=== PATIENT | female | born 1965 | race Hispanic/Latino ===

== ENCOUNTER 2017-11-10 06:15 | Day surgery (SDC) | payer BC ==
[2017-11-07 10:45] VITALS: BMI 32.8
[2017-11-10 07:15] LABS: HEMOGLOBIN 14.6 g/dL (12.0-16.0); MEAN CELL VOLUME 89.7 fl (81.0-99.0); MEAN CORPUSCULAR HEMOGLOBIN 30.2 pg (27.0-31.0); MEAN CORPUSCULAR HGB CONC 33.7 g/dL (33.0-37.0); RBC 4.82 Mil/uL (3.80-5.20); RED CELL DISTRIBUTION WIDTH 13.5 % (11.5-14.5); WHITE BLOOD COUNT 6.1 K/uL (4.8-10.8)
[2017-11-10] MEDS ORDERED: ePHEDrine 50 mg/ml Inj ONE (09:22)
[2017-11-10] MEDS ORDERED: Rocuronium 10 mg/ml (5 ml) ONE (09:22)
[2017-11-10] MEDS ORDERED: Propofol 10 mg/ml Inj (20 ML) ONE (09:22)
[2017-11-10] MEDS ORDERED: Bupivacaine HCl 0.5% PF (10 ml) Inj ONE (10:24)
[2017-11-10] MEDS ORDERED: Succinylcholine 200 mg/10 ml Inj IV ONE (11:19)
[2017-11-10] MEDS ORDERED: Midazolam 2 MG/2 ML VIAL ONE (11:20)
[2017-11-10] MEDS ORDERED: Dexamethasone 4 mg/1 ml ONE (11:24)
[2017-11-10] MEDS ORDERED: Lactated Ringer's 1,000 ML IV ONE ×2 (11:39→12:20)
[2017-11-10] MEDS ORDERED: HYDROmorphone 0.5 mg/0.5 ml ISec IVP PRN (12:56)
[2017-11-10] MEDS ORDERED: Dexamethasone 4 mg/1 ml IVP PRN (13:02)
[2017-11-10] MEDS ORDERED: Midazolam 2 MG/2 ML VIAL IVP PRN (13:02)
[2017-11-10 14:20] VITALS: RESP 18
[2017-11-10] MEDS ORDERED: Metoprolol Succinate 50 mg XL Tab PO ONE (17:10)
[2017-11-10] MEDS ORDERED: Metoprolol Succinate 50 mg XL Tab PO SCH (17:15)
[2017-11-10 17:40] VITALS: BP 149/91; PULSE 143; TEMP 97.7; O2SAT 95
--- NOTE | 2017-11-11 13:53 | OP ---
PROCEDURE DATE: 11/10/17 SURGEON: Alberto Chapman MD ANALYTICS DIRECTOR: Justice Limon MD ANESTHESIOLOGIST: Dariana Marroquin MD ANESTHETIC: General PREOPERATIVE DIAGNOSES: 1. Incapacitating pelvic pain. 2. Incapacitating abdominal pain. 3. Abnormal uterine bleeding. 4. History of pelvic endometriosis. 5. History of previous failed medical surgical therapy. 6. Gastrointestinal and genitourinary symptoms. POSTOPERATIVE DIAGNOSES: 1. Incapacitating pelvic pain. 2. Incapacitating abdominal pain. 3. Abnormal uterine bleeding. 4. History of pelvic endometriosis. 5. History of previous failed medical surgical therapy. 6. History of severe endometriosis and pelvic adhesions. 7. Gastrointestinal and genitourinary symptoms. 8. pelvic endometriosis. OPERATION PERFORMED: 1. Examination under anesthesia. 2. operative laparoscopy 3. Multiple peritoneal biopsies and excision of endometriosis 4. Left ureterolysis. 5. Enterolysis. 6. Treatment of endometriosis COMPLICATIONS: None. SAMPLES: sent to pathology DRAINS: ESTIMATED BLOOD LOSS: Minimal. FINDINGS: Genitalia normal, external genitalia, cervix normal without lesions or polyps. Laparoscopy upper was normal, gallbladder was normal, liver edges appeared to be normal. Ascending colon and transverse were normal. The appendix appeared to be abnormal with both fibrosis and thickening. There was evidence of some fibrosis and endometriosis . Fallopian tubes appeared to have some inflammatory changes of adhesions, but overall appeared to be normal. Both ovaries appeared to be normal . CONSENT: The patient had been thoroughly evaluated and counseled regarding pros and cons of the procedure, the reasonable alternative, and the possible complications. She understood and accepted the risks involved. Appropriate literature was provided to the patient. The patient was in understanding that given her history and presurgical exam, she knows that she was a high risk and average patient. She accepted all the risks involved and all the questions had been answered to her satisfaction. DESCRIPTION OF PROCEDURE: Initiation of the case: After adequate anesthesia was obtained, the patient was placed in the dorsal lithotomy position with extreme care of placement of the patient without hyperextension or hyperflexing the hips. At this point, the patient was prepped and draped, the surgeon was gowned and gloved. A time- out was taken according to the hospital procedure and the procedure was started. . At this point, we proceeded with placement of the trocars . The surgeons were regowned and regloved, and an open laparoscopy was performed by making an incision below the umbilicus, and the fascia was incised, and the peritoneum was entered in the blunt fashion. The cannula was inserted and the abdomen was insufflated, and under direct visualization 2 additional ports were inserted, left upper quadrant, left mid quadrant and right upper quadrant. . The pelvis had the findings described above, which included significant adhesions, At this point, we proceeded with the left ureterolysis. The left ureter appeared to dilated and it was clearly identified utilizing fluorescent technology. An incision was made on the peritoneum at the top of the pelvic brim, and incision was then carried down all the way opening the peritoneum and all the way down from the pelvic brim all the way down to the ovarian fossa extending the incision below the ovary. It was a progressive dissection where the ureter was progressively lateralized and the peritoneum medialized, thus freeing the ureter all the way down to the crossing of the uterine vessels. After this was done and the ureter was freed and lateralized and a large area of peritoneum, which had been opened up was excised and sent to pathology. At this point, it was checked for hemostasis and appeared to be excellent. All the endometriosis had been excised. At this point, we performed the ablation of inflamed peritoneum, utilizing the J_plasma device. There were inflammatory areas in the posterior aspect of the uterus, which were not endometriotic, but they were purely inflammatory and these were not excisable, as they were not endometriotic. Therefore, we proceeded with ablation of such area utilizing the J plasma. Once this was done, it was checked for hemostasis and appeared to be excellent. After this was done, it was checked for hemostasis and appeared to be excellent. The pelvis was irrigated. The abdomen desufflated. The instruments were removed. The incisions were closed in layers with 0 PDS for the fascia and 4-0 Monocryl for the skin. The patient was awakened up and taken to recovery room in excellent condition. Alberto Chapman MD [facility]ENTERJamey
--- NOTE | 2017-11-14 21:33 | CARD ---
APPROVED REPORT EKG Measurement Heart [id number] VA 104P [id number] <Conclusion> Sinus tachycardia with short VA Minimal voltage criteria for LVH, may be normal variant Anterolateral infarct, age undetermined Abnormal ECG
== END 2017-11-10 18:30 | disposition still patient (30) ==
LOC: H.OPSURG 06:15
PROVIDERS: ATTEND Obstetrics & Gynecology Reproductive Endocrinology
DX: N80.3 Endometriosis of pelvic peritoneum (principal); E03.9 Hypothyroidism, unspecified; I10 Essential (primary) hypertension; K21.9 Gastro-esophageal reflux disease without esophagitis; F32.9 Major depressive disorder, single episode, unspecified; F41.9 Anxiety disorder, unspecified; R10.2 Pelvic and perineal pain; N93.9 Abnormal uterine and vaginal bleeding, unspecified; K66.0 Peritoneal adhesions (postprocedural) (postinfection); N80.0 Endometriosis of uterus; N73.6 Female pelvic peritoneal adhesions (postinfective); N13.4 Hydroureter; N80.1 Endometriosis of ovary
CPT/HCPCS: 36415; 58558; 58662; 85027; 86850; 86900; 88305; 93005; C1729; J0330; J1100; J1170; J2001; J2250; J2704; J2765; J3010; J7030; J7040; J7120

== ENCOUNTER 2017-11-10 18:16 | Emergency (ER) | payer BC ==
[2017-11-10 18:17] VITALS: BMI 32.8
[2017-11-10 18:57] VITALS: TEMP 98.1
[2017-11-10] MEDS ORDERED: Sodium Chloride 0.9% 1,000 ML IV STA (19:03)
--- NOTE | 2017-11-10 19:04 | ED PDOC ---
HPI: Psych/Substance Abuse Time Seen by Provider: 11/10/17 18:44 Chief Complaint (Nursing): Palpitations Chief Complaint (Provider): Palpitations History Per: Patient History/Exam Limitations: no limitations Onset/Duration Of Symptoms: Hrs (x2) Current Symptoms Are (Timing): Still Present Additional Complaint(s): 52 year old female with medical history of anxiety, referred to the emergency department from day-stay for an evaluation of panic attacks and palpitations ongoing for 2 hours prior to arrival. Patient was being prepped for laparoscopic surgery and given "something that was like Ativan" prior which caused her to feel anxious. She states this is the worse episode that she has ever experienced. Patient denies any chest pain or shortness of breath. Past Medical History Reviewed: Historical Data, Nursing Documentation, Vital Signs Vital Signs: Last Vital Signs Temp 98.1 F 11/10/17 18:52 Pulse 129 H 11/10/17 18:52 Resp 21 11/10/17 18:52 BP Pulse Ox 96 11/10/17 18:52 - Medical History PMH: Anxiety, Gastritis (heartburn), Hypothyroidism Denies: Chronic Kidney Disease - Surgical History Surgical History: Cholecystectomy - Family History Family History: States: Unknown Family Hx - Home Medications Home Medications: Ambulatory Orders Medication Instructions Recorded Aspirin [Ecotrin] 81 mg PO DAILY 11/07/17 Lorazepam [Ativan] 1 mg PO BID 11/07/17 Metoprolol Succinate XL [Toprol XL] 50 mg PO DAILY 11/07/17 Omeprazole [Omeprazole] 40 mg PO DAILY 11/07/17 PARoxetine [Paxil] 30 mg PO BID 11/07/17 Levothyroxine [Synthroid] 112 mcg PO DAILY 11/10/17 [place]-3 Fatty Acids/Fish Oil [Fish 2,100 mg PO BID 11/10/17 Oil 1,000 mg Capsule] Tetracycline [Tetracycline Cap] 100 mg PO BID 11/10/17 - Allergies Allergies/Adverse Reactions: Allergies Allergy/AdvReac Type Severity Reaction Status Date / Time amoxicillin Allergy RASH Verified 11/07/17 10:45 ondansetron [From Zofran] Allergy SWELLING Verified 11/07/17 10:45 Penicillins Allergy RASH Verified 11/07/17 10:46 Review of Systems ROS Statement: Except As Marked, All Systems Reviewed And Found Negative Cardiovascular: Positive for: Palpitations. Negative for: Chest Pain Respiratory: Negative for: Shortness of Breath Psych: Positive for: Anxiety Physical Exam - Reviewed Nursing Documentation Reviewed: Yes Vital Signs Reviewed: Yes - Physical Exam Appears: Positive for: In Acute Distress (mild) Head Exam: Positive for: ATRAUMATIC, NORMAL INSPECTION, NORMOCEPHALIC Skin: Positive for: Normal Color Eye Exam: Positive for: Normal appearance ENT: Positive for: Normal ENT Inspection Neck: Positive for: Normal Cardiovascular/Chest: Positive for: Chest Non Tender, Tachycardia (with regular rhythm). Negative for: Regular Rate, Rhythm Respiratory: Positive for: Normal Breath Sounds. Negative for: Respiratory Distress Extremity: Positive for: Normal ROM (upper/lower) Neurologic/Psych: Positive for: Alert (x3), Oriented, Mood/Affect (anxious). Negative for: Motor/Sensory Deficits - ECG O2 Sat by Pulse Oximetry: 96 (RA) Pulse Ox Interpretation: Normal Medical Decision Making Medical Decision Making: Initial Impression: Anxiety; Palpitations Initial Plan: * EKG * CMP * Urine * Urine dipstick * CBC * Ativan 1mg IVP * NS 1,000ml IV per 1,000mls/hr * UA Scribe Attestation: Documented by Laura Zepeda, acting as a scribe for Yvonne Mike MD. Provider Scribe Attestation: All medical record entries made by the Scribe were at my direction and personally dictated by me. I have reviewed the chart and agree that the record accurately reflects my personal performance of the history, physical exam, medical decision making, and the department course for this patient. I have also personally directed, reviewed, and agree with the discharge instructions and disposition. Disposition - Disposition
[2017-11-10 19:27] LABS: BASO % 0.2 % (0.0-2.0); HEMOGLOBIN 13.7 g/dL (12.0-16.0); LYMPH # 0.5 K/uL (1.0-4.3); LYMPH % 4.3 % (20.0-40.0); MEAN CELL VOLUME 90.3 fl (81.0-99.0); MEAN CORPUSCULAR HEMOGLOBIN 29.9 pg (27.0-31.0); MEAN PLATELET VOLUME 11.4 fl (7.2-11.7); MONO # 0.2 K/uL (0.0-0.8); MONO % 1.9 % (0.0-10.0); NEUT # 10.1 K/uL (1.8-7.0); NEUT % 93.6 % (50.0-75.0); PLATELET COUNT 185 K/uL (130-400); RBC 4.59 Mil/uL (3.80-5.20); RED CELL DISTRIBUTION WIDTH 13.3 % (11.5-14.5); WHITE BLOOD COUNT 10.8 K/uL (4.8-10.8)
--- NOTE | 2017-11-10 19:31 | ED PDOC ---
- Laboratory Results Result Diagrams: 11/10/17 19:15 11/10/17 19:15 - ECG O2 Sat by Pulse Oximetry: 96 (RA) - Progress Re-evaluation Time: 21:11 Condition: Re-examined, Improved Medical Decision Making Medical Decision Making: Time: 1899 --Patient is endorsed to provider by Dr. Mike, pending lab results and re- evaluation. Time: 1950 --Labs reviewed: potassium at 3.4. --20meq PO of potassium chloride ordered. --UA: RBC and leuko present. Consistent with possible UTI or post surgery. --Will recheck vitals. Time: 2109 --Vitals are stabilized. Patient reports improvement and requires no further treatment in the ED at this time. Patient will be discharged home. Counseling was provided and all questions were answered regarding diagnosis and need for follow up with PCP and surgeon in 1-2 days. There is agreement to discharge plan. Return if symptoms persist or worsen. Scribe Attestation: Documented by Laura Zepeda, acting as a scribe for Radha French MD. Provider Scribe Attestation: All medical record entries made by the Scribe were at my direction and personally dictated by me. I have reviewed the chart and agree that the record accurately reflects my personal performance of the history, physical exam, medical decision making, and the department course for this patient. I have also personally directed, reviewed, and agree with the discharge instructions and disposition. Disposition Discussed With : Alberto Chapman Doctor Will See Patient In The: Office Counseled Patient/Family Regarding: Studies Performed, Diagnosis, Need For Followup - Clinical Impression Clinical Impression: Palpitations, Anxiety - POA Present On Arrival: None - Disposition Referrals: Alberto Chapman [Medical Doctor] - Disposition: Routine/Home Disposition Time: 21:11 Condition: GOOD Additional Instructions: Follow up with your PCP and Dr Chapman within 2-3 days. Instructions: Palpitations, Anxiety, Adult (DC)
[2017-11-10 19:46] LABS: SQUAMOUS EPITHIAL 1 /hpf (0-5); URINE BILIRUBIN NEGATIVE (NEGATIVE); URINE BLOOD MODERATE (NEGATIVE); URINE CLARITY SLIGHTY-CLOUDY (Clear); URINE COLOR YELLOW (YELLOW); URINE GLUCOSE (UA) NEG (Normal); URINE LEUKOCYTE ESTERASE MOD Leu/uL (Negative); URINE PROTEIN NEGATIVE (NEGATIVE); URINE UROBILINOGEN 0.2-1.0 mg/dL (0.2-1.0)
[2017-11-10 19:48] LABS: ALB/GLOB RATIO 1.5 (1.0-2.1); ALBUMIN 4.6 g/dL (3.5-5.0); ALT/SGPT 45 U/L (9-52); AST/SGOT 45 U/L (14-36); BLOOD UREA NITROGEN 8 mg/dl (7-17); CALCIUM 9.3 mg/dL (8.4-10.2); GFR AFRICAN-AMERICAN > 60; GFR NON-AFRICAN AMERICAN > 60
[2017-11-10] MEDS ORDERED: Potassium Chloride 20 mEq ER Tab PO ONE ×2 (19:51→20:31)
[2017-11-10 20:38] LABS: LYMPHOCYTE 5 % (20-50); MONOCYTE 2 % (0-10); NEUTROPHIL 93 % (42-75); PLATELET ESTIMATE NORMAL (NORMAL); TOTAL CELLS COUNTED 100
[2017-11-10 20:39] LABS: ANISOCYTOSIS SLIGHT; LARGE PLATELETS PRESENT; OVALOCYTES MODERATE; TEARDROP CELLS SLIGHT
[2017-11-10 20:53] VITALS: BP 112/74; PULSE 94; RESP 16
[2017-11-10 20:54] VITALS: O2SAT 96
== END 2017-11-10 21:30 | disposition home or self-care (01) ==
LOC: H.ER 18:16
DX: R00.2 Palpitations (principal); F41.9 Anxiety disorder, unspecified
CPT/HCPCS: 80053; 81003; 81025; 85025; 87086; 96361; 96374; 99283; J2060; J7030